=== PATIENT | female | born 1970 | race Asian ===

== ENCOUNTER 2022-01-15 08:11 | Day surgery (SDC) | payer OTHER ==
[2022-01-11 12:49] VITALS: BMI 24.1
[2022-01-15 08:29] VITALS: RESP 20; TEMP 97.3
[2022-01-15 10:32] VITALS: BP 100/68; PULSE 72
== END 2022-01-15 10:30 | disposition home or self-care (01) ==
LOC: FASU-ENDO 08:11
PROVIDERS: ATTEND Internal Medicine Gastroenterology
PROC: 0DJD8ZZ Inspection of Lower Intestinal Tract, Via Natural or Artificial Opening Endoscopic (ICD-10-PCS; principal; 2022-01-15 09:30)
DX: Z12.11 Encounter for screening for malignant neoplasm of colon (principal); Z83.71 Family history of colonic polyps